=== PATIENT | male | born 1960 | race Caucasian/White ===

== ENCOUNTER 2021-10-19 06:55 | Day surgery (SDC) | payer OTHER ==
[2021-10-19] MEDS ORDERED: Lactated Ringers 1,000 ML IV SCH (07:00)
[2021-10-19] MEDS ORDERED: Propofol 200 MG/20 ML SDV ONE ×2 (07:43→09:12)
[2021-10-19] MEDS ORDERED: fentaNYL 100 MCG/2 ML SDV ONE (07:44)
--- NOTE | 2021-10-20 12:29 | OR ---
PREOPERATIVE DIAGNOSIS: Screening colonoscopy. POSTOPERATIVE DIAGNOSIS: Screening colonoscopy. PROCEDURE PERFORMED: Total flexible colonoscopy. ANESTHESIA: MAC anesthesia. COMPLICATIONS: None. BLOOD LOSS: Minimal. FINDINGS: Normal total colonoscopy. Start time 0911, cecum 0913, stop time 0924. BOWEL PREP: [place] class 2. INDICATIONS FOR PROCEDURE: Mr. Patton is a 61-year-old male who had a colonoscopy 10 years ago. He has never had any polyps. He denies a history of bloody or dark black stools. No family history of colon cancer. PROCEDURE IN DETAIL: Informed consent was obtained. Patient was placed in the left lateral decubitus position. MAC anesthesia was induced by our Anesthesia colleagues without incident. The colonoscope was introduced to the rectum and advanced all the way to the cecum. The appendiceal orifice was photographed and the terminal ileum was intubated and photographed. The colonoscope was then slowly withdrawn. We did not identify any pathology. The retroflexed views obtained and then the colonoscope was removed. The patient was awoken from anesthesia by Anesthesia colleagues without incident. RECOMMENDATION: Repeat screening colonoscopy in 10 years. RKM: 10/19/2021 09:39:16 MODL: 10/19/2021 15:15:10 /[id number]
== END 2021-10-19 10:30 | disposition home or self-care (01) ==
LOC: VM.SDS 06:55
PROVIDERS: ATTEND Student in an Organized Health Care Education/Training Program
DX: Z12.11 Encounter for screening for malignant neoplasm of colon (principal); I25.2 Old myocardial infarction; I25.10 Atherosclerotic heart disease of native coronary artery without angina pectoris; E66.9 Obesity, unspecified; E78.5 Hyperlipidemia, unspecified; Z98.890 Other specified postprocedural states; Z90.49 Acquired absence of other specified parts of digestive tract; Z79.899 Other long term (current) drug therapy; Z79.82 Long term (current) use of aspirin; Z88.0 Allergy status to penicillin; Z68.34 Body mass index [BMI] 34.0-34.9, adult
CPT/HCPCS: 00812; J2704; J3010; J7120

== ENCOUNTER 2021-12-23 09:08 | Emergency (ER) | payer OTHER ==
[2021-12-23 10:01] LABS: CORONAVIRUS COVID-19 NAA NEGATIVE (NEGATIVE); RESPIRATORY SYNCYTIAL VIR NAA NEGATIVE (NEGATIVE)
== END 2021-12-23 10:28 | disposition home or self-care (01) ==
LOC: VM.ED 09:08
DX: J06.9 Acute upper respiratory infection, unspecified (principal); I25.10 Atherosclerotic heart disease of native coronary artery without angina pectoris; E78.00 Pure hypercholesterolemia, unspecified; I25.2 Old myocardial infarction; E66.9 Obesity, unspecified; Z68.34 Body mass index [BMI] 34.0-34.9, adult; Z88.0 Allergy status to penicillin; Z79.82 Long term (current) use of aspirin; Z79.899 Other long term (current) drug therapy; Z20.822 Contact with and (suspected) exposure to COVID-19
CPT/HCPCS: 0241U; 99283